=== PATIENT | male | born 1985 | race African-American/Black ===

== ENCOUNTER 2022-03-01 19:39 | Emergency (ER) | payer SELFPAY ==
[~2022-03-01] VITALS: Ht 175.3 cm; Wt 86.7 kg
[2022-03-01 19:45] VITALS: BP 150/103
[2022-03-01] MEDS ORDERED: PREDNISONE 20MG TABLET PO STA (22:15)
[2022-03-01] MEDS ORDERED: ALBUTEROL (0.083%) 2.5MG/3ML NEB HHN STA (22:15)
[2022-03-01] MEDS ORDERED: IPRATROPIUM BROMIDE (0.02%) 0.5MG/2.5ML NEB HHN STA (22:15)
[2022-03-01] MEDS ORDERED: ALBU6.7H9 INH (23:51)
[2022-03-01] MEDS ORDERED: P20 MT (23:51)
== END 2022-03-02 00:02 | disposition home or self-care (01) ==
LOC: ER 19:39
DX: B34.9 Viral infection, unspecified (principal); J45.909 Unspecified asthma, uncomplicated; I10 Essential (primary) hypertension
CPT/HCPCS: 71045; 93005; 94640; 94664; 99283; J7512; Z7610